=== PATIENT | female | born 1950 | race Caucasian/White ===

== ENCOUNTER 2017-08-18 05:26 | Emergency (ER) | payer OTHER ==
[~2017-08-18] VITALS: Ht 167.6 cm; Wt 103.4 kg
[~2017-08-18 05:26] MED LIST: AMOXICILLIN500 MG; AMOXICILLIN875 MG; ANTIVERT25 MG PO; ARIPIPRAZOLE10 MG PO; ASPIR 8181 M1 PO; ASPIR-TRIN325 M1 PO; ASPIRIN E.C.81 M1 PO; ASPIRIN EC325 MG PO; ASPIRIN325 MG PO; BUSPAR10 MG PO; CALCIUM; CALCIUM 500 MG1 EACH PO; CITRATE OF MAG296 ML PO; CLONAZEPAM0.5 MG; CO Q-10100 MG PO; COGENTIN0.5 MG PO; COLACE100 MG PO; ECOTRIN325 MG PO; Ecotrin PO; FLUOXETINE HCL20 MG; FLUOXETINE HCL20 MG PO; KLONOPIN0.5 M1 PO; LIPITOR40 MG PO; LISINOPRIL10 MG; LISINOPRIL10 MG PO; LO-DOSE ASPIRIN81 M1 PO; NAPROSYN375 MG PO; NAPROSYN500 MG PO; NOHOMEMEDS; OXCARBAZEPINE150 MG; OXCARBAZEPINE150 MG PO; OXCARBAZEPINE300 MG PO; PRAVACHOL40 MG PO; PRAVASTATIN SOD40 MG; PRAVASTATIN SOD40 MG PO; PROBIOT; PROBIOTIC1 EAC1 PO; PROPRANOLOL HCL20 MG PO; PROZAC10 MG PO; PROZAC20 MG PO; QUETIAPINE FUM100 MG; QUETIAPINE FUM200 MG; QUETIAPINE FUM300 MG; QUETIAPINE FUM300 MG PO; QUETIAPINE FUMA25 MG PO; RISPERDAL M-TAB1 MG PO; RISPERDAL1 MG PO; RISPERIDONE2 MG PO; RISPERIDONE3 MG PO; SELENIUM; SELENIUM200 MCG PO; SEROQUEL XR300 MG PO; SEROQUEL200 MG PO; SIMVASTATIN40 MG PO; TRILEPTAL75 MG PO; VITAMIN C W/AC500 M1 PO; ZESTRIL,PRINIVI10 M1 PO; ZESTRIL10 MG PO; ZYPREXA7.5 MG PO; Zocor PO; [UNRECOGNIZED DRUG - OTHER]; risperDAL PO
[2017-08-18 06:14] LABS: HEMATOCRIT 40.5 % (36.0-46.0); MCH 32.5 PG (29.0-34.0); MCHC 33.8 G/DL (30.0-36.0); MEAN PLAT.VOLUME 10.6 uM^3 (9.5-12.4); PLATELET COUNT 278 K/uL (156-360); RBC DIS.WIDTH-CV 13.7 % (11.8-14.6); RBC DIS.WIDTH-SD 48.6 % (39-53); RED BLOOD COUNT 4.22 M/uL (3.80-5.20)
[2017-08-18 06:17] LABS: CHLORIDE 103 mEq/L (99-109); POTASSIUM 3.8 mEq/L (3.7-5.4); SODIUM 139 mEq/L (136-147)
[2017-08-18 06:20] LABS: GLUCOSE 147 mg/dL (70-99)
[2017-08-18 06:21] LABS: ANION GAP 12 MEQ/L (2-14); TOTAL BILIRUBIN 0.4 mg/dL (0.0-1.0)
[2017-08-18 06:23] LABS: ALKALINE PHOSPHATASE 78 IU/L (3-129); GFR ESTIMATE (CALCULATED) > 59 mL/min/
[2017-08-18 06:24] LABS: UREA NITROGEN (BUN) 7 mg/dL (9-23)
[2017-08-18 07:30] LABS: ADD MIUA? YES; BILIRUBIN NEGATIVE; BLOOD NEGATIVE; COLOR YELLOW ((YELLOW)); GLUCOSE (STRIP) NEGATIVE; KETONES NEGATIVE; LEUKOCYTES TRACE; NITRITE NEGATIVE; PROTEIN (STRIP) NEGATIVE; UROBILINOGEN 0.2 MG/DL (0.2-1.0)
[2017-08-18 07:37] LABS: LIPASE 27 U/L (1.0-51.0)
[2017-08-18 07:42] LABS: BACTERIA NONE SEEN /HPF; EPITHELIAL CELLS NONE SEEN /HPF; MUCUS TRACE /LPF; RED BLOOD CELLS 0-5 /HPF (0-5); UCUL ADDED? NO; WHITE BLOOD CELLS 0-5 /HPF (0-5)
[2017-08-18] MEDS ORDERED: ZOFRAN ODT4 MG PO (10:58)
[2017-08-18 11:12] VITALS: BP 137/87
== END 2017-08-18 11:37 | disposition home or self-care (01) ==
LOC: EME → EDBD 05:26 → EME 11:37
DX: R10.10 Upper abdominal pain, unspecified (principal); I10 Essential (primary) hypertension; E78.5 Hyperlipidemia, unspecified; J45.909 Unspecified asthma, uncomplicated; K80.20 Calculus of gallbladder without cholecystitis without obstruction; H26.9 Unspecified cataract; F41.9 Anxiety disorder, unspecified; F31.9 Bipolar disorder, unspecified; Z85.038 Personal history of other malignant neoplasm of large intestine; Z90.49 Acquired absence of other specified parts of digestive tract; Z88.4 Allergy status to anesthetic agent
CPT/HCPCS: 74177; 80053; 81003; 83690; 85027; 99281; 99284; J1885; J2405; J7030